=== PATIENT | female | born 1955 | race Caucasian/White ===

== ENCOUNTER → 2020-06-25 14:19 | Outpatient (CLI) | payer MEDICARE, SELFPAY ==
[2020-05-30 14:30] VITALS: BMI 21.2
--- NOTE | 2020-06-25 14:22 | BI_ITS ---
MAMMOGRAPHY - BILATERAL SCREENING REASON FOR EXAM: Female, 65 years old. Routine annual screening examination. PERTINENT HISTORY: Non-contributory. TECHNIQUE: Digital bilateral breast ila (3D mammographic acquisition) in the CC and MLO projections. 2-D mediolateral oblique (MLO) and craniocaudad (CC) views of both breasts were obtained. CAD: Full Field Digital Mammography with Computer Added Detection was performed. COMPARISON: Comparison is made with prior outside examination dated 03/29/2012. FINDINGS: Breast Composition: The breasts are extremely dense, which lowers the sensitivity of mammography. There are no dominant masses or suspicious calcifications. No other significant abnormalities are identified. There has been no significant change since the prior study. BI/SCRN MAMM (CAD)W/ILA BILAT IMPRESSION: Stable bilateral screening mammogram. Yearly follow-up mammogram recommended. (A) ASSESSMENT CATEGORY: BIRADS Category 1: Negative. A letter regarding these results will be sent to the patient by the facility within 30 days. Approximately 10% of breast cancers are not detected by mammography. A normal mammogram should not delay biopsy of a clinically suspicious abnormality. [id number] Electronically Signed: Jonah Angela MD at 15:46 EDT , Service support ,
--- NOTE | 2020-06-25 14:27 | BD_ITS ---
STUDY: DUAL ENERGY X-RAY ABSORPTIOMETRY / DXA REASON FOR EXAM: Female, 65 years old. Post-menopausal TECHNIQUE: Bone Mineral Density (BMD) measurements of lumbar spine and bilateral hips were obtained. COMPARISON: None. FINDINGS: Lumbar Spine (L1-L4): g/cm2 (0.793) / T-score (-3.1) / Z-score (-1.5) Findings are suggestive of osteoporosis with a high fracture risk. Left Femur Total: g/cm2 (0.729) / T-score (-2.2) / Z-score (-0.9) Left Femoral Neck: g/cm2 (0.705) / T-score (-2.4) / Z-score (-0.8) Right Femur Total: g/cm2 (0.708) / T-score (-2.4) / Z-score (-1.1) Right Femoral Neck: g/cm2 (0.701) / T-score (-2.4) / Z-score (0.9) BD/Dexa Bone Density Study IMPRESSION: The patient is considered osteoporotic as outlined below according to World [employer] Organization (WHO) criteria with a high fracture risk. Reference Information: The T-score is the number of standard deviations above or below the standard which is normal for young adults at their peak bone mineral density. The World Health Organization (WHO) interprets the T-scores as follows: Above -1 Normal bone density Between -1 and -2.5 Osteopenia Equal to / or below -2.5 Osteoporosis As a practical clinical guideline, osteopenia may be graded as follows: Mild -1 through -1.5 Moderate -1.6 through -2.0 Severe -2.1 through -2.4 The Z-score is the number of standard deviations above or below age-matched controls. A Z-score of less than -1.5 would be considered abnormal. References: 1. NIH Osteoporosis and Related Bone Diseases www osteo.org 2. International Society for Clinical Densitometry www iscd.org 3. National Osteoporosis Foundation www nof.org Electronically Signed: Jonah Angela MD at 13:59 EDT , Service support ,
== END ==
PROVIDERS: Referring Provider Nurse Practitioner Women's Health; Visit Provider Nurse Practitioner Women's Health
DX: M81.0 Age-related osteoporosis without current pathological fracture (principal); Z78.0 Asymptomatic menopausal state; Z12.31 Encounter for screening mammogram for malignant neoplasm of breast
CPT/HCPCS: 77063; 77067; 77080

== ENCOUNTER 2023-08-07 16:38 | Emergency (ER) | payer MEDICARE, SELFPAY ==
[2023-08-07 16:39] VITALS: BP 125/66; PULSE 81; PULSE 90; RESP 14; TEMP 36.6; O2SAT 100; O2SAT 99; BMI 15.7
--- NOTE | 2023-08-07 17:36 | EDS_ITS ---
HPI History of Present Illness Chief Complaint: Lower Extremity Injury Informant: patient Narrative Narrative: Patient is a 68 year old female with no significant past medical history presenting with redness, itching and some mild swelling to her left medial knee. Patient states she recently was outside and sustained a lot of mosquito bites. States mosquitoes got in her pants. She has been itching but has had increase in redness of to her knee. She was concerned and came in to have it evaluated further. Denies any fever or chills. Denies any significant pain. Denies any pain with range of motion of her knee. Denies any trauma. Does not take any bl ood thinners. No other complaints or concerns reported at this time. Is not aware of any recent tick bites. [facility] Medical History Osteoporosis preeclampsia Home Medications ?Medication ?Instructions ?Recorded ?Last Taken ?Type biotin 1 mg capsule 1 mg PO DAILY 05/30/20 Unknown History estradiol 0.01% (0.1 mg/gram) See Rx Instructions vaginal 05/30/20 Unknown Rx vaginal cream .COMPLEX #42.5 grams cephalexin 500 mg capsule 500 mg PO Q6 #40 CAPSULES 08/07/23 Unknown Rx Allergy/AdvReac Type Severity Reaction Status Date / Time No Known Allergies Allergy Verified 08/07/23 16:40 Surgical History H/O section Social History Smoking Status: Never smoker alcohol intake: never substance use type: does not use caffeine: Yes frequency: 1-2 times per week seatbelt use: always do you feel safe at home: Yes additional social history: [employer] Ret[employer] ED Constitutional Constitutional ED: Denies chills or fever(s) Gastrointestinal Gastrointestinal: Denies nausea or vomiting Musculoskeletal Musculoskeletal: Denies arthralgias or myalgias Integumentary Reports rash Neurologic Neurologic: Denies paresthesias or weakness Hematologic/Lymphatic Hematologic/Lymphatic: Denies easy bleeding or easy bruising EXAM Physical Exam Const Vital Signs: 08/07/23 16:39 08/07/23 16:39 Temperature 97.9 F Temperature Source Temporal Pulse Rate 81 90 Respiratory Rate 14 14 Blood Pressure 125/66 H 125/66 H Blood Pressure Mean 85 85 Pulse Ox 99 100 Oxygen Delivery Method Room Air Room Air Positive well nourished and well developed General Appearance ED: well developed and NAD HEENT Reports moist mucous membranes Chest Wall inspection of chest normal Resp normal respiratory effort Cardio regular rate and regular rhythm Cardio Narrative: 2+ DP pulses Extremity normal to inspection and full ROM General Extremety ED: Negative for edema General Extremity: Negative for edema Neuro moves all extremities and no sensory deficits noted Sensorium / Orientation: alert, oriented to person, oriented to place and oriented to time Motor Exam: Negative for general weakness Psych mental status grossly normal Skin Skin Narrative: Patient has approximately 10 cm in diameter circumferential area of erythema over the medial aspect of the knee. There is associated warmth and edema but it does not feel indurated like a cellulitis. No associated fluctuance. The lesion is slightly annular with a more dusky appearance of the center concerning for possible erythema migrans. No associated lymphangitic streaking. Patient does have some other scattered smaller areas of warmth and raised erythema on the legs more consistent with localized reaction from a bug bite. MDM MDM MDM Narrative Medical decision making narrative: Patient is evaluated for increased redness of her left medial knee. I suspect most likely this is just an exaggerated response to an arthropod bite however the differential of Lyme disease/erythema migrans as well as cellulitis is also present. Will obtain titers for Lyme disease but defer treatment at this time as patient is not aware of any recent bites and is not any fever. Is given a [id number] prescription for Keflex in case the redness gets worse or she develops any fever or other infectious symptoms. Otherwise she is encouraged to take Benadryl and use cool compresses as well as daily Zyrtec. She is agreeable this plan of care. Is given return precautions. Patient does not have a joint effusion or range of motion pain of the knee so I do not suspect an intra- articular process such as a septic joint. Discharge Plan Triage Chief Complaint: Lower Extremity Injury ED Provider: Niecy Sullivan Dx/Rx/DC Orders Clinical Impression: Arthropod bite of multiple sites of lower extremity, Rash and nonspecific skin eruption Instructions: ED Insect Bite Prescriptions: New cephalexin 500 mg capsule 500 mg PO Q6 Qty: 40 0RF No Action biotin 1 mg capsule 1 mg PO DAILY estradiol 0.01 % (0.1 mg/gram) cream See Rx Instructions VAGINAL .COMPLEX Qty: 42.5 2RF Rx Instructions: small amount as directed vaginal every other day X 4 weeks then twice a week; Primary Care Provider: Care Physician,No Primary Referrals: Prudencio Rizo MD [Med Staff - Supplier Development Manager] - As Needed Care Physician,No Primary [Primary Care Provider] - Activity Restrictions/Additional Instructions: The exact source/cause of your rash is not clear. I suspect it is more of an exaggerated allergic response from a bug bite. If that is the case daily Zyrtec, Benadryl as needed and cool compresses and time and it should resolve. If it is getting worse or you develop fever/chills or start to have pain associated with this I did send in a prescription for antibiotic (Keflex). In addition it is possible that this could be a rash associated with Lyme disease. We did send off for Lyme titers and will be contacted if they are positive as you will need treatment. Print Language: Welsh Disposition Disposition: Home, Self Care Discharge Date/Time: 08/07/23 18:04
[2023-08-07] MEDS: DiphenhydrAMINE 25 MG Capsule 50 MG PO (17:41)
[2023-08-10 18:09] LABS: Lyme IGG CIA Positive (Negative); Lyme IGM CIA Positive (Negative); Lyme Scn Total Ab w/Rflx Positive (Negative)
== END 2023-08-07 18:04 | disposition home or self-care (01) ==
PROVIDERS: Emergency Provider Emergency Medicine; Visit Provider Emergency Medicine
DX: S80.862A Insect bite (nonvenomous), left lower leg, initial encounter (principal); R21 Rash and other nonspecific skin eruption; W57.XXXA Bitten or stung by nonvenomous insect and other nonvenomous arthropods, initial encounter; Y92.89 Other specified places as the place of occurrence of the external cause
CPT/HCPCS: 86618; 99282